=== PATIENT | male | born 1980 | race Caucasian/White ===

== ENCOUNTER 2019-01-15 07:15 | Outpatient (CLI) | payer OTHER ==
[2019-01-15] MEDS ORDERED: GADOBUTROL 10 MMOL/10 ML VIAL ONE (08:13)
[2019-01-15] MEDS ORDERED: GADOBUTROL 10 MMOL/10 ML VIAL IVP ONE (08:22)
--- NOTE | 2019-01-15 09:39 | MRI Report ---
Reason: NEW ONSET SEIZURE OR PSEUDOSEIZURE Procedure Date: 01/15/2019 Accession Number: [id number] / [id number] Procedure: MRI - Brain W/WO CPT Code: Final Report FULL RESULT: EXAM: MRI BRAIN WITHOUT AND WITH CONTRAST EXAM DATE: 01/15/2019 08:31 AM. CLINICAL HISTORY: New onset seizure or pseudoseizure. COMPARISON: None. TECHNIQUE: Multiplanar, multisequence T1-weighted and fluid-sensitive MR sequences of the brain were performed before and after administration of intravenous contrast. Sequences optimized for routine and medial temporal lobe evaluation. Other: None. IV Contrast: 8.5 mL Gadavist. FINDINGS: Brain Volume: Normal for age. Parenchyma: No acute hemorrhage, mass, or infarct. Normal thorpe matter and white matter signal intensity is identified. No evidence of focal cortical dysplasia, heterotopia, or abnormal gyration. The hippocampi are symmetric and qualitatively normal in size and signal. Internal architecture appears intact. No abnormal enhancement. Ventricles/Cisterns: The ventricles, sulci, and cisterns are normal. No abnormal extra-axial fluid collection or hemorrhage. Orbits: Symmetric and unremarkable. Sella Turcica: The pituitary gland, cavernous sinuses, suprasellar cistern and optic chiasm are unremarkable. IAC: Symmetric and unremarkable. Vasculature: Normal signal flow void is seen in the major arterial structures at the skull base. The dural sinuses are patent and enhance normally. Sinuses: No acute sinusitis. Mild polypoid mucosal thickening or mucous retention cysts are seen inferiorly in the right maxillary antrum. Bones: No focal pathologic appearing marrow signal changes. Other: None. IMPRESSION: 1. Normal MRI of the brain without and with contrast. No acute abnormality. No infarct, mass, hemorrhage, or abnormal enhancement. RADIA
== END 2019-01-15 07:16 | disposition home or self-care (01) ==
LOC: DI 07:15
PROVIDERS: ATTEND Physician Assistant
DX: R56.9 Unspecified convulsions (principal)
CPT/HCPCS: 70553; A9585

== ENCOUNTER 2019-08-01 13:00 | Emergency (ER) | payer OTHER ==
[2019-08-01 13:24] LABS: BASOPHILS % (AUTO) 0.5 %; EOSINOPHILS # (AUTO) 0.1 10^3/uL (0.0-0.7); HGB - HEMOGLOBIN 16.7 g/dL (14.0-18.0); LYMPHOCYTES % (AUTO) 26.6 %; MEAN CORPUSCULAR HEMOGLOBIN 29.7 pg (27.0-31.0); MEAN CORPUSCULAR HGB CONC 32.6 g/dL (32.0-36.0); MEAN CORPUSCULAR VOLUME 91.1 fL (80.0-94.0); MONOCYTES # (AUTO) 0.5 10^3/uL (0.0-1.0); MONOCYTES % (AUTO) 7.4 %; NEUTROPHILS # (AUTO) 4.7 10^3/uL (1.5-6.6); NEUTROPHILS % (AUTO) 64.2 %; PLT - PLATELET COUNT 303 10^3/uL (130-450); RED BLOOD COUNT 5.62 10^6/uL (4.70-6.10); RED CELL DISTRIBUTION WIDTH 13.2 % (12.0-15.0); WHITE BLOOD COUNT 7.3 x10^3/uL (4.8-10.8)
--- NOTE | 2019-08-01 13:40 | ED Physician Documentation ---
History of Present Illness - Stated complaint Stated Complaint: MHE - Chief complaint Chief Complaint: MHE - History obtained from History obtained from: Patient (38-year-old gentleman, generally healthy but with anxiety and depression. He was on Zoloft and an increasing dose until about a week ago. His girlfriend broke up with him and then he went into what he describes as severe mental anguish culminating in him riding a suicide note l ast night and [place] thoughts of jumping [place].) Review of Systems Ten Systems: 10 systems reviewed and negative Constitutional: denies: Fever, Chills Throat: denies: Dental pain / toothache, Sore throat Cardiac: denies: Chest pain / pressure, Palpitations Respiratory: denies: Dyspnea PD PAST MEDICAL HISTORY - Past Medical History Past Medical History: Yes Respiratory: Other (Spontaneous pneumothorax many years ago, nothing recent.) Psych: Depression - Past Surgical History Past Surgical History: No - Allergies Allergies/Adverse Reactions: Allergies Allergy/AdvReac Type Severity Reaction Status Date / Time No Known Drug Allergies Allergy Verified 08/01/19 13:10 - Social History Does the pt smoke?: No Smoking Status: Never smoker Does the pt drink ETOH?: No Does the pt have substance abuse?: No Substance Use and Type: Other (Remote history of alcohol abuse, last drink was about 10 years ago.) - Family History Family history: reports: Non contributory - Immunizations Immunizations are current?: Yes - POLST Patient has POLST: No PD ED PE NORMAL - Vitals Vital signs reviewed: Yes - General General: Alert and oriented X 3, No acute distress, Other (Poor eye contact) - HEENT HEENT: PERRL, EOMI - Neck Neck: Supple, no meningeal sign, No bony TTP - Cardiac Cardiac: RRR, No murmur - Respiratory Respiratory: No respiratory distress, Clear bilaterally - Abdomen Abdomen: Soft, Non tender - Back Back: No CVA TTP, No spinal TTP - Derm Derm: Normal color, Warm and dry - Extremities Extremities: No edema, No calf tenderness / cord - Neuro Neuro: Alert and oriented X 3, Normal speech Results - Vitals Vitals: Vital Signs - 24 hr 08/01/19 08/01/19 13:03 13:18 Temperature 36.3 C L 36.5 C Heart Rate 85 85 Respiratory 14 14 Rate Blood Pressure 131/89 H 130/90 H O2 Saturation 98 98 Oxygen O2 Source Room air - Labs Labs: Laboratory Tests 08/01/19 08/01/19 08/01/19 13:17 13:17 13:17 WBC 7.3 RBC 5.62 Hgb 16.7 Hct 51.2 MCV 91.1 MCH 29.7 MCHC 32.6 RDW 13.2 Plt Count 303 MPV 9.0 Neut # (Auto) 4.7 Lymph # (Auto) 2.0 Aiken # (Auto) 0.5 Eos # (Auto) 0.1 Baso # (Auto) 0.0 Absolute Nucleated RBC 0.00 Nucleated RBC % 0.0 Sodium 142 Potassium 4.1 Chloride 98 L Carbon Dioxide 30 Anion Gap 14.0 H BUN 17 Creatinine 1.0 Estimated GFR (MDRD) 85 L Glucose 103 H Calcium 9.8 Total Bilirubin 0.9 AST 20 ALT 26 Alkaline Phosphatase 57 Total Protein 8.3 H Albumin 4.6 Globulin 3.7 Albumin/Globulin Ratio 1.2 Lipase 30 TSH 2.19 Urine Color Urine Clarity Urine pH Ur Specific [place] Urine Protein Urine Glucose (UA) Urine Ketones Urine Occult Blood Urine Nitrite Urine Bilirubin Urine Urobilinogen Ur Leukocyte Esterase Ur Microscopic Review Urine Culture Comments Salicylates < 6.0 Urine Opiates Screen Ur Oxycodone Screen Urine Methadone Screen Ur Propoxyphene Screen Acetaminophen < 10 L Ur Barbiturates Screen Ur Tricyclics Screen Ur Phencyclidine Scrn Ur Amphetamine Screen U Methamphetamines Scrn U Benzodiazepines Scrn Urine Cocaine Screen U Cannabinoids Screen Ethyl Alcohol < 5.0 08/01/19 13:57 WBC RBC Hgb Hct MCV MCH MCHC RDW Plt Count MPV Neut # (Auto) Lymph # (Auto) Aiken # (Auto) Eos # (Auto) Baso # (Auto) Absolute Nucleated RBC Nucleated RBC % Sodium Potassium Chloride Carbon Dioxide Anion Gap BUN Creatinine Estimated GFR (MDRD) Glucose Calcium Total Bilirubin AST ALT Alkaline Phosphatase Total Protein Albumin Globulin Albumin/Globulin Ratio Lipase TSH Urine Color DARK YELLOW Urine Clarity CLEAR Urine pH 7.0 Ur Specific [place] 1.015 Urine Protein NEGATIVE Urine Glucose (UA) NEGATIVE Urine Ketones NEGATIVE Urine Occult Blood NEGATIVE Urine Nitrite NEGATIVE Urine Bilirubin NEGATIVE Urine Urobilinogen 0.2 (NORMAL) Ur Leukocyte Esterase NEGATIVE Ur Microscopic Review NOT INDICATED Urine Culture Comments NOT INDICATED Salicylates Urine Opiates Screen NEGATIVE Ur Oxycodone Screen NEGATIVE Urine Methadone Screen NEGATIVE Ur Propoxyphene Screen NEGATIVE Acetaminophen Ur Barbiturates Screen NEGATIVE Ur Tricyclics Screen NEGATIVE Ur Phencyclidine Scrn NEGATIVE Ur Amphetamine Screen NEGATIVE U Methamphetamines Scrn NEGATIVE U Benzodiazepines Scrn NEGATIVE Urine Cocaine Screen NEGATIVE U Cannabinoids Screen NEGATIVE Ethyl Alcohol PD MEDICAL DECISION MAKING - ED course ED course: 38yo M AD [place], active SI. Stable for psych tx. SW saw pt and arranged for xfer to [facility] under the care of Dr Mars. Departure - Departure Disposition: [facility] Psych Hosp/Unit DC/Xfer Clinical Impression: Depression Qualifiers: Depression Type: major depressive disorder Major depression recurrence: recurrent Active/Remission status: currently active Major depression episode severity: severe Psychotic features: without psychotic features Qualified Code(s): F33.2 - Major depressive disorder, recurrent severe without psychotic features Condition: Stable
[2019-08-01 13:41] LABS: ACETAMINOPHEN < 10 ug/mL (10-30); ALBUMIN 4.6 g/dL (3.2-5.5); ALBUMIN/GLOBULIN RATIO 1.2 (1.0-2.2); ALKALINE PHOSPHATASE 57 IU/L (42-121); ALT ALANINE AMINOTRANSFERASE 26 IU/L (10-60); AST ASPARTATE AMINOTRANSFERASE 20 IU/L (10-42); BILIRUBIN,TOTAL 0.9 mg/dL (0.2-1.0); BUN - BLOOD UREA NITROGEN 17 mg/dL (6-20); CALCIUM 9.8 mg/dL (8.5-10.3); CARBON DIOXIDE - CO2 30 mmol/L (21-32); CHLORIDE 98 mmol/L (101-111); GLUCOSE 103 mg/dL (70-100); LIPASE 30 U/L (22-51); SALICYLATE < 6.0 mg/dL; SODIUM 142 mmol/L (135-145); TOTAL PROTEIN 8.3 g/dL (6.7-8.2)
[2019-08-01 14:02] LABS: MUDS CUTOFF CONCENTRATIONS CUTOFF CONC BELOW:
[2019-08-01 14:05] LABS: BILIRUBIN,URINE NEGATIVE (NEGATIVE); GLUCOSE, URINE (UA) NEGATIVE (NEGATIVE); KETONES,URINE (UA) NEGATIVE (NEGATIVE); LEUKOCYTE ESTERASE, URINE NEGATIVE (NEGATIVE); NITRITE,URINE NEGATIVE (NEGATIVE); OCCULT BLOOD,URINE NEGATIVE (NEGATIVE); PROTEIN,URINE NEGATIVE (NEGATIVE); UROBILINOGEN,URINE 0.2 (NORMAL) E.U./dL (NORMAL)
[2019-08-01 14:07] LABS: CLARITY,URINE CLEAR (CLEAR)
[2019-08-01 14:16] LABS: AMPHETAMINE SCREEN,URINE NEGATIVE (NEGATIVE); BENZODIAZEPINES SCREEN, URINE NEGATIVE (NEGATIVE); COCAINE SCREEN URINE NEGATIVE (NEGATIVE); METHADONE SCREEN, URINE NEGATIVE (NEGATIVE); METHAMPHETAMINES SCREEN, URINE NEGATIVE (NEGATIVE); OPIATE SCREEN, URINE NEGATIVE (NEGATIVE); OXYCODONE SCREEN, URINE NEGATIVE (NEGATIVE); PROPOXYPHENE SCREEN, URINE NEGATIVE (NEGATIVE); TRICYCLIC ANTIDEPRESSANT,URINE NEGATIVE (NEGATIVE)
[2019-08-01 16:16] VITALS: BP 127/86
== END 2019-08-01 16:46 ==
LOC: ED 13:00
DX: F33.2 Major depressive disorder, recurrent severe without psychotic features (principal)
CPT/HCPCS: 36415; 80053; 80306; 80307; 80320; 80329; 81001; 81003; 83690; 84443; 85025; 87086; 99284; 99285

== ENCOUNTER 2020-03-30 14:15 | Outpatient (CLI) | payer OTHER ==
[2020-03-30 15:21] VITALS: BP 121/74
--- NOTE | 2020-03-30 15:21 | SLEEP CARE CONSULTATION ---
Information from patient questionnaire entered by Jacques Baires. I have reviewed and concur with the information entered by Jacques Baires. This document represents the service I personally performed and the decisions made by me, Roxie Ross ARNP. History of Present Illness Service Date and Time: 03/30/2020 1415 Reason for Visit: New patient Chief Complaint: reports: Unrefreshed sleep, Snoring, Excessive daytime sleepiness, Observed pauses in breathing, Fatigue, Other (YO, previous dx 2011; HST 2018, inconclusive; PSG 2019, moderate YO; no treatment) Date of Onset: 10 + years Usual bedtime: 10 PM Time it takes to fall asleep: 1 - 2 hours Snores at night: Yes (sometimes) Observed to quit breathing while asleep: Yes Sleeps alone due to snoring: No (N/A) Number of times waking at night: 2 - 3 Reasons for waking at night: reports: Gasping for air, Other (In a panicked state). denies: Choking, Snoring Toss, Turn, or Twitch while sleeping: Yes Recalls having dreams: No Usually gets out of bed at: 6 - 7 AM Feels refreshed in the morning: No Morning headache: Yes (depends on diet, health with enough water okay; 3-5 days week) Sleepy or fatigued during the day: Yes Ever fallen asleep while driving: No Takes day naps: No Dreams during day naps: No Prior sleep studies: No Additional HPI information: I had the pleasure of seeing KAITLIN YEUNG today regarding the possibility of him having a sleep disorder. His current complaints are previously diagnosed YO. He states he did a home study in 2018 that was inconclusive. He did a polysomnography in December of 2018 that showed moderate obstructive sleep apnea. He was placed on an oral appliance to control his apneas but after trying it for 2-3 week he had to stop due to an inability to "breathe out of his sinuses". He was sent to an ENT specialist and had had 2-3 sinus surgeries, one that removed the adenoids and opened up his sinuses because they could not drain. He is only able to sleep 2-3 hours of sleep but then he just lays there and tries to rest without actually sleeping. He is not feeling rested, is just fatigued during the day but he just makes himself keep going. He also states he has had two sleep p hysicians tell him he should not be on CPAP therapy due to his history of a spontaneous pneumothorax. This required a VATS surgery that removed 15% of his right lung. He was sent here by his new doctor who wants him to start CPAP therapy. - Parasomnia Symptoms Ever been unable to move upon waking from sleep: Yes Walks in sleep: No Talks in sleep: No Ever acted out dreams in sleep: No Ever felt weak in the knees when startled or emotional: Yes Bothered by creepy, crawly, restless sensations in legs: Yes (occasionally) Problems with memory or concentration: Yes Subjective Initial Craig Sleepiness Scale score: 2 (in 2020) Past Medical History Past Medical History: reports: Anxiety, Depression, Mood disorder, GERD, Other (pneumothorax with Vats surgery removing 15% of right lung). denies: Hypertension Social History The patient's occupation is a ACTIVE [employer] . Patient is Single and lives in [place]. Have you smoked in the past 12 months: Yes (situationally (clove cigars)) Cigarettes per day (20/pack): 1 Years of smokin Quit date: Recently Smoking Pack Years: 0 Alcohol use: No Caffeine use: Yes Caffeine amount and frequency: 1/2 pot of coffee Family History Family history of sleep disordered breathing: No Allergies and Home Medications Drug allergies reviewed: Yes (NKDA) Home medication list reviewed: Yes Allergy and home medication list: Flonase, as needed Review of Systems Cardiovascular: reports: chest pain. denies: high blood pressure Respiratory: reports: shortness of breath Gastrointestinal: reports: heartburn, nausea, diarrhea Neurological: reports: headaches, disorientation, gait or balance problems Psychiatric: reports: anxiety, depression, mood disorder Ear/Nose/Throat: reports: nasal congestion, sinus problems (2-3 sinus surgeries, adenoids removed), dry mouth/throat, tonsillectomy (he thinks it was taken out), wisdom teeth removed Endocrine: reports: sluggishness (tired), too hot or cold, increased appetite Musculoskeletal: reports: neck pain Immunologic: reports: sneezing (runny nose) Physical Exam Blood Pressure: 121/74 Cuff size: long Heart Rate: 87 O2 Saturation: 98 Height: 6 ft Weight: 175 lb Body Mass Index: 23.7 BMI Classification: Healthy weight Neck circumference: 14.77 (inches) Nostrils: patent to airflow Turbinates: normal Septum: midline Mouth and throat: narrow oropharynx Soft palate: long Hard palate: normal Uvula visualization: 25% Mallampati Class III Tongue: enlarged in size with teeth tiwari on lateral edges Tonsils: absent bilaterally Chin and jaw: normal size and position Neck: normal w/o lymphadenopathy or thyromegaly Heart: regular rate and rhythm Lungs: clear bilaterally Impression and Plan 1. Suspected Obstructive Sleep Apnea-Hypopnea Syndrome, as previously diagnosed and as suggested by a continued history of snoring, observed cessation of breath while asleep, gasping or choking in sleep, morning headache, frequent awakening during the night, unrefreshed sleep, cognitive impairment, and excessive daytime sleepiness. I reviewed with the patient that a narrow oropharynx and obesity are common predisposing factors for obstructive sleep apnea-hypopnea syndrome. I recommend proceeding to polysomnography to confirm the diagnosis and to assess severity. If the patient has significant sleep disordered breathing, a manual CPAP titration study will also be performed to find the optimal treatment pressure. I informed the patient of what the sleep studies involve and after some discussion, obtained agreement to proceed. The pathophysiology of obstructive sleep apnea-hypopnea syndrome was discussed with the patient and health risks of cardiovascular and cerebrovascular disease if not treated. Risks of drowsy driving discussed in detail and patient advised to avoid long distance driving and to ladle puller at the first sign of drowsiness. Patient agreed to plan. Patient has had a 10 pound weight loss since December 2018 after he had his last sleep study. He was asked to bring in a copy of his sleep study for us to review. He would prefer a in lab study since his last HST was inconclusive in 2017. * Schedule polysomnography +- manual CPAP titration study and return in 1-2 weeks after the study to discuss result and initiate therapy. * Avoid long distance driving or driving when feeling sleepy. * Avoid alcohol, sedative and muscle relaxant around bedtime. * Review instructions provided by trained office staff on how to prepare for the sleep study. * Return for follow-up after sleep study completed. Visit Type: In Office Time Spent with Patient (minutes): 32 Provider Statement: I spent 100% of the Face to Face Visit with the patient with greater than 50% spent counseling the patient and coordination of care.
== END 2020-03-30 14:16 | disposition home or self-care (01) ==
LOC: SC 14:15
PROVIDERS: ATTEND Nurse Practitioner Family
DX: G47.33 Obstructive sleep apnea (adult) (pediatric) (principal)
CPT/HCPCS: 99203; 99212